=== PATIENT | male | born 1960 | race Caucasian/White ===

== ENCOUNTER → 2019-09-30 | Outpatient (CLI) | payer OTHER ==
--- NOTE | 2019-09-30 12:24 | XR ---
Left hand HISTORY: Pain and swelling 3 views the left hand There is subchondral sclerosis, joint space loss, hypertrophic change of the carpometacarpal joint of the first digit. Alignment and joint spaces, bone mineralization otherwise maintained. No fracture o r dislocation. Some mild spurring present at the metacarpophalangeal joint of the first digit. IMPRESSION: Osteoarthritis.
== END | disposition home or self-care (01) ==
LOC: RADXRMAIN 09:01
PROVIDERS: ATTEND Family Medicine
DX: M19.042 Primary osteoarthritis, left hand (principal)

== ENCOUNTER → 2021-03-17 | Outpatient (CLI) | payer OTHER ==
--- NOTE | 2021-03-17 11:29 | ECHOF ---
Referral Reason:R01.1 murmur MEASUREMENTS -------- HEIGHT: 182.9 cm WEIGHT: 90.7 kg BP: IVSd: 1.4 cm (0.6 - 1.1) LVIDd: 4.6 cm (3.9 - 5.3) LVPWd: 1.3 cm (0.6 - 1.1) EDV(Teich): 96 ml IVSs: 1.8 cm LVIDs: 2.8 cm LVPWs: 1.8 cm %IVS Thck: 25 % ESV(Teich): 29 ml EF(Teich): 70 % %FS: 39 % SV(Teich): 67 ml RVIDd: 4.0 cm (< 3.3) MURALI Planimetry: 1.3 cm AVAI Planimetry: 0.595 cm/m LALs A4C: 5.4 cm LAAs A4C: 20.8 cm LAESV A-L A4C: 67 ml LAESV MOD A4C: 59 ml LALs A2C: 5.6 cm LAAs A2C: 23.5 cm LAESV A-L A2C: 85 ml LAESV MOD A2C: 80 ml LAESV(A-L): 76 ml LAESV Index (A-L): 35.88 ml/m Ao Diam: 2.6 cm (2.0 - 3.7) AV Cusp: 1.6 cm (1.5 - 2.6) EPSS: 1.0 cm MV E [place]: 0.71 m/s MV DecT: 205 ms MV Dec [place]: 3.5 m/s MV A [place]: 0.62 m/s MV E/A Ratio: 1.15 MV PHT: 59 ms LVOT Vmax: 1.33 m/s LVOT maxP.07 mmHg AV Vmax: 1.96 m/s AV maxP.37 mmHg AV Vmax: 2.01 m/s AV Vmean: 1.33 m/s AV maxP.14 mmHg AV meanP.04 mmHg AV Env.Ti: 304 ms AV VTI: 40.5 cm TR Vmax: 2.89 m/s TR maxP.44 mmHg RAP: 5.00 mmHg RVSP: 38.44 mmHg MV EF SLOPE: 103.02 mm/s (70 - 150) MV EXCURSION: 22.20 mm (> 18.000) FINDINGS -------- Sinus rhythm. This was a technically adequate study. The left ventricular size is normal. There is moderate concentric left ventricular hypertrophy. O verall left ventricular systolic function is normal with, an EF between 55 - 60 %. The diastolic fi lling pattern is normal for the age of the patient {E/E'}. The right ventricle is moderately enlarged. LA is moderately dilated 34-39 ml/m2 The right atrial size is normal. Mobile interatrial septum. There is mild aortic valve sclerosis. There is no evidence of aortic regurgitation. There is mild aortic stenosis present. The maximum velocity across the aortic valve is 2.01m/s. Peak/mean grad ient across the Aortic Valve is 16.14mmHg / 8.04mmHg. 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 Moderate mitral regurgitation is present. Mild tricuspid regurgitation present. There is mild pulmonary hypertension. The right ventricular systolic pressure, as measured by Doppler, is 38.44mmHg. Trace/mild (physiologic) pulmonic regurgitation. The aortic root size is normal. IVC Not well visulized. There is no pericardial effusion. CONCLUSIONS -------- 1. The left ventricular size is normal. 2. There is moderate concentric left ventricular hypertrophy. 3. Overall left ventricular systolic function is normal with, an EF between 55 - 60 %. 4. The diastolic filling pattern is normal for the age of the patient {E/E'} 5. The right ventricle is moderately enlarged. 6. LA is moderately dilated 34-39 ml/m2 7. Mobile interatrial septum. 8. There is mild aortic valve sclerosis. 9. There is mild aortic stenosis present. 10. The maximum velocity across the aortic valve is 2.01m/s. 11. Peak/mean gradient across the Aortic Valve is 16.14mmHg / 8.04mmHg. 12. 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 13. Moderate mitral regurgitation is present. 14. Mild tricuspid regurgitation present. 15. There is mild pulmonary hypertension. 16. The right ventricular systolic pressure, as measured by Doppler, is 38.44mmHg. 17. Trace/mild (physiologic) pulmonic regurgitation. ASSOCIATE PROFESS[employer]: Laura Evans [facility]
== END | disposition home or self-care (01) ==
LOC: RADECHMAIN 08:33
PROVIDERS: ATTEND Family Medicine
DX: I08.3 Combined rheumatic disorders of mitral, aortic and tricuspid valves (principal); I27.20 Pulmonary hypertension, unspecified
CPT/HCPCS: 93306

== ENCOUNTER 2021-05-04 09:23 | Day surgery (SDC) | payer OTHER ==
[2021-05-02 08:29] VITALS: BMI 27.1
[2021-05-04] MEDS ORDERED: SODIUM CHLORIDE 0.9% 500 ML 500 ML IV ONE (09:42)
[2021-05-04] MEDS ORDERED: fentaNYL (PF) 50 MCG/ML 2 ML AMP ONE (10:14)
[2021-05-04] MEDS: BENZOCAINE SPRAY 1 CAN TOPICAL ONE ×4 (10:22→10:56)
[2021-05-04 10:30] VITALS: RESP 16
[2021-05-04] MEDS ORDERED: MIDAZOLAM 2 MG/2 ML VIAL IV ONE ×3 (10:38→10:58)
[2021-05-04] MEDS ORDERED: fentaNYL (PF) 50 MCG/ML 2 ML AMP IV ONE (10:56)
[2021-05-04] MEDS: MIDAZOLAM 2 MG/2 ML VIAL IV ONE ×3 (10:56→11:01)
--- NOTE | 2021-05-04 11:39 | P.PCN ---
Date of Procedure: 05/04/21 Operative Findings: TRANSESOPHAGEAL ECHOCARDIOGRAM HEEL SPLITTER: NESTOR RIVERS MD, RPVI INDICATION: This is a 60-year-old gentleman who underwent recently a transthoracic echocardiogram showed quadricep aortic valve with also dilated right ventricle and atrium and possible atrial septal defect SEDATION: Conscious sedation COMPLICATION: None LEVEL OF SEDATION Moderate with a sedation length of 12 minutes PROCEDURE DESCRIPTION: After obtaining an informed consent, the patient was brought to transesophageal echocardiogram room. Pulse oximetry and heart monitors were attached to the patient. The patient throat was sprayed using lidocaine. The patient was turned into left lateral position. After that a bite guard was placed. After an appropriate conscious sedation was initiated, the transesophageal echocardiogram was advanced through a bite guard into the mid esophagus. A 2-D echocardiogram images, color Doppler images, continuous wave images, pulse-wave images, of various cardiac structure were performed. After that the transesophageal echocardiogram probe was advanced into the stomach and fixed to obtain transgastric view was. The probe was brought into the mid esophagus. Inter-atrial septum was interrogated using 2D images, color Doppler images, and then contrast study. After that transesophageal echocardiogram was withdrawn out and upon withdrawing the descending thoracic aorta all the way up to the arch was evaluated. FINDING: The left ventricular dimension and systolic function appeared to be within normal limits. The right ventricle is dilated. The right atrium is dilated as well. The left atrial appendage appeared to be intact. The interatrial septum appeared to be extremely aneurysmal with evidence of [id number] and [id number] shunts identified. The septum appeared to be fenestrated. The aortic valve is trileaflet valve without stenosis or regurgitation. The mitral valve seems to be mildly thickened with mild MR only. There is mild tricuspid regurgitation seen. The pulmonary artery systolic pressure was not calculated. The aortic root appears to be mildly dilated. CONCLUSION: 1. Fenestrated interatrial septum with evidence of bidirectional shunt and evidence of right heart dilated dictation related to volume overload 2. Dilated right atrium and right ventricle 3. Normal left ventricular dimension and systolic function 4. Trileaflet aortic valve without stenosis or regurgitation 5. Normal mitral valve leaflets with mild MR 6. No evidence of pericardial effusion
[2021-05-04 11:53] VITALS: PULSE 62
[2021-05-04 12:14] VITALS: BP 126/83
== END 2021-05-04 12:15 | disposition home or self-care (01) ==
LOC: CATHCVL 09:23
PROVIDERS: ATTEND Internal Medicine Interventional Cardiology
DX: I51.7 Cardiomegaly (principal); I10 Essential (primary) hypertension; E78.5 Hyperlipidemia, unspecified; Z20.822 Contact with and (suspected) exposure to COVID-19; Z79.82 Long term (current) use of aspirin; Z79.899 Other long term (current) drug therapy
CPT/HCPCS: 93312; 93320; 93325; 87635; J2250; J3010

== ENCOUNTER → 2021-06-26 | Outpatient (CLI) | payer OTHER ==
[2021-06-26 18:27] LABS: HCT 42.6 % (39.6-50.0); HGB 13.9 g/dL (13.0-17.0); MCH 29.1 pg (27.0-32.0); MCHC 32.6 g/dL (32.0-37.0); MCV 89.1 fL (80.0-97.0); Mean Platelet Volume 9.7 fL (9.5-12.2); NRBC Per 100 WBC 0 /100 WBCS (0.0-0.0); Platelet Count 357 X 10*3/uL (140-440); RBC 4.78 X 10*6/uL (4.40-5.60); RDW 13.7 % (11.5-14.5); WBC 5.42 X 10*3/uL (4.50-10.00)
[2021-06-26 21:57] LABS: African American GFR (CKD) 107.6 (60.0-200.0); Anion Gap 12.2 mmol/L (10.00-18.00); Carbon Dioxide 21.5 mmol/L (20.0-27.5); Non-African American GFR(CKD) 92.8 (60.0-200.0); Potassium 4.6 mmol/L (3.5-5.5)
== END | disposition home or self-care (01) ==
LOC: LABPAT 10:09
PROVIDERS: ATTEND Internal Medicine Interventional Cardiology
DX: Z01.812 Encounter for preprocedural laboratory examination (principal); Q21.1 Atrial septal defect
CPT/HCPCS: 36415; 80051; 82565; 84520; 85027

== ENCOUNTER 2021-07-04 07:23 | Day surgery (SDC) | payer OTHER ==
[2021-07-03 10:24] VITALS: BMI 26.6
[~2021-07-04 07:23] MED LIST: ALPRAZolam 0.25 MG TAB PO PRN; ALPRAZolam 0.5 MG TAB PO PRN; ASPIRIN 325 MG TAB PO STA; ATORVASTATIN 80 MG TAB PO STA; HEPARIN SODIUM,PORCINE 10,000 UNIT in SODIUM CHLORIDE 0.9% 1,000 ML IRRIGATION PRN; HEPARIN SODIUM,PORCINE 2,500 UNIT in SODIUM CHLORIDE 0.9% 250 ML IRRIGATION PRN; NITROGLYCERIN SL TABS 0.4 MG TAB SUBLINGUAL PRN
[2021-07-04] MEDS: SODIUM CHLORIDE 0.9% 1,000 ML in EMPTY BAG 1 BAG IV SCH ×2 (07:45→16:05)
[2021-07-04] MEDS ORDERED: MIDAZOLAM 2 MG/2 ML VIAL IV ONE (09:19)
[2021-07-04] MEDS ORDERED: LIDOCAINE 1% INJ 10MG/ML (30 ML VIAL-PF) SQ ONE (09:21)
[2021-07-04] MEDS ORDERED: HEPARIN SODIUM 1,000 UN/ML (10ML VL) IV ONE (09:25)
[2021-07-04] MEDS ORDERED: IOPAMIDOL-370 50ML BTL INJ ONE (09:39)
[2021-07-04] MEDS ORDERED: CLOPIDOGREL 75 MG TAB PO ONE (09:52)
[2021-07-04] MEDS ORDERED: SODIUM CHLORIDE 0.9% 1,000 ML IV SCH (10:00)
--- NOTE | 2021-07-04 10:02 | P.PCN ---
Date of Procedure: 07/04/21 Operative Findings: PERCUTANEOUS CLOSURE OF FENESTRATED INTERATRIAL SEPTUM PERFORMING PHYSICIAN: Harpal Rodriguez MD, VI PROCEDURE PERFORMED: 1. Successful percutaneous closure of fenestrated atrial septal defect (ASD) using 30 mm Amplatzer Occluder with an excellent results and without any residual shunt. 2. Intracardiac echocardiogram imaging. 3. Right atrial angiogram. INDICATION: This is a 61-year-old gentleman was found to have right side dictation with RV and RA dietitian on echocardiogram. Subsequently transesophageal ech ocardiogram was performed and revealed evidence of fenestrated interatrial septum with bidirectional shunt. APPROACH: Right common femoral vein 2 COMPLICATION: None. LEVEL OF SEDATION: Moderate with sedation length of 20 minutes. PROCEDURE DESCRIPTION: After obtaining informed consent, the patient was brought to the cardiac [facility]aker laboratory. The right common femoral vein was cannulated x2 using micropuncture technique under ultrasound guidance, the micropuncture wire passed easily, then I placed two 8-Welsh sheath in the right groin. Subsequently I cannulated the left common femoral vein with the same technique and I placed an 8-Welsh sheath there as well. At that point, anticoagulation was initiated using heparin and the patient was given a bolus of 10,000 units of heparin IV with continuous ACT monitoring throughout the procedure. After that, the intracardiac echocardiogram probe was advanced through one of the venous sheath all the way to the right atrium where we did interrogate the interatrial septum and identified the patent foramen ovale which was measured about 35 mm. Subsequently, I did cross the defect using 0.035 J-wire with the backup support of multipurpose catheter. The wire was advanced all the way to the left upper pulmonary vein and subsequently the catheter was advanced over the wire to the left upper pulmonary vein. The 0.035 J-wire was pulled out and then I advanced a teddy wire. Subsequently, the multipurpose catheter was withdrawn out and the wire was left in the left upper pulmonary vein. After that, I did prep the Amplatzer PFO occluder under saline. The device was loaded into the forklift wheel loader, which was attached to the sheath. Subsequently, I did exchange my 8-Welsh sheath into the Shuttle sheath over a 0.035 teddy wire. The sheath was advanced all the way under fluoroscopy guidance to the left atrium. Subsequently, the dilator of the sheath was withdrawn out along with the wire. After that, I did load the Amplatzer occluder under continuous saline flush to the sheath. The device was advanced all the way through the sheath were I did where I did deploy initially the left atrial occluder and then I pulled back the sheath and the left atrial occluder all the way to the interatrial septum and then I deployed the right atrial occluder after that. Before I released the device, I did interrogate the septum using ice images on multiple views. After I realized that the device was stable enough and in good position the device was released. Interrogation using ice was also performed after the device was released. By the end I did right atrial angiogram. The procedure was completed without any complication. POSTPROCEDURE MANAGEMENT: 1. Dual anti-platelet therapy. 2. An echo in 24 hours, in 1 week, in 4 weeks, as well as in 6 months.
[2021-07-04] MEDS ORDERED: CHOLECALCIFEROL 25 MCG (1000 IU) TABLET PO SCH (13:00)
[2021-07-04] MEDS ORDERED: atenoloL 50 MG TAB PO SCH (13:00)
[2021-07-04] MEDS ORDERED: CHLORTHALIDONE 25 MG TAB PO SCH (13:00)
[2021-07-04] MEDS ORDERED: LOSARTAN 50 MG TAB PO SCH (13:00)
[2021-07-04] MEDS ORDERED: ATORVASTATIN 10 MG TAB PO SCH (13:00)
[2021-07-04] MEDS ORDERED: amLODIPine 5 MG TAB PO SCH (13:00)
[2021-07-05 01:52] VITALS: RESP 16
[2021-07-05] MEDS: SODIUM CHLORIDE 0.9% 1,000 ML in EMPTY BAG 1 BAG IV SCH (02:43)
[2021-07-05 07:15] VITALS: BP 125/80; PULSE 55; TEMP 97.6
--- NOTE | 2021-07-05 08:18 | XR ---
EXAMINATION TYPE: XR chest 2V DATE OF EXAM: 07/05/2021 COMPARISON: NONE HISTORY: ASD/PFO placement TECHNIQUE: Frontal and lateral views of the chest are obtained. FINDINGS: Surgical patch from ASD repair noted posterior right aspect of cardiac silhouette. There i s no suspicious focal air space opacity, pleural effusion, or pneumothorax seen bilaterally. The car diac silhouette size is within normal limits. Multilevel spurring in the thoracic spine is noted. IMPRESSION: As above.
[2021-07-05] MEDS ORDERED: ASPIRIN 325 MG TAB PO SCH (09:00)
[2021-07-05] MEDS ORDERED: CLOPIDOGREL 75 MG TAB PO SCH (09:00)
--- NOTE | 2021-07-05 10:30 | P.DS ---
Providers Attending physician: Harpal Rodriguez Primary care physician: [facility] Course: The patient is a pleasant 61-year-old gentleman who underwent yesterday successful closure of atrial septal defect with an excellent angiographic results and without any complication from right groin approach. He was seen this morning. He is asymptomatic. He is hemodynamically stable. The physical examination is unremarkable. The right groin is soft and nontender and without any bruises. He is going to be discharged on dual antiplatelet therapy and I'll follow-up with the patient in a week. Plan - Discharge Summary Discharge Rx Participant: No New Discharge Prescriptions: New Clopidogrel Bisulfate [Plavix] 75 mg PO DAILY #90 tab Continue Cholecalciferol [Vitamin D3 (25 Mcg = 1000 Iu)] 25 mcg PO 1200 Atenolol/Chlorthalidone [Atenolol/Chlorthalidone 100-25] 1 each PO 1200 Atorvastatin [Lipitor] 10 mg PO 1200 amLODIPine [Norvasc] 5 mg PO 1200 Olmesartan Medoxomil [Benicar] 40 mg PO 1200 Aspirin [Adult Low Dose Aspirin EC] 81 mg PO 1200 Discharge Medication List Aspirin [Adult Low Dose Aspirin EC] 81 mg PO 1200 05/02/21 [History] Atenolol/Chlorthalidone [Atenolol/Chlorthalidone 100-25] 1 each PO 1200 05/02/21 [History] Atorvastatin [Lipitor] 10 mg PO 1200 05/02/21 [History] Cholecalciferol [Vitamin D3 (25 Mcg = 1000 Iu)] 25 mcg PO 1200 05/02/21 [History] Olmesartan Medoxomil [Benicar] 40 mg PO 1200 05/02/21 [History] amLODIPine [Norvasc] 5 mg PO 1200 05/02/21 [History] Clopidogrel Bisulfate [Plavix] 75 mg PO DAILY #90 tab 07/05/21 [Rx] Follow up Appointment(s)/Referral(s): Harpal Rodriguez MD [STAFF PHYSICIAN] - 1 Week
[2021-07-05] MEDS ORDERED: ASPIRIN 81 MG PO SCH (12:00)
--- NOTE | 2021-07-05 13:48 | CA ---
Transthoracic Echo Report Name: Tiago Valle Age: 61 Gender: M : 1960 Exam Date: 07/05/2021 11:27 Exam Location: [place] [facility] Ht (in): 72 Wt (lb): 203 Ordering Physician: Harpal Rodriguez MD ([id number]) Attending/Referring Phys: Refrigeration Manager Laura Evans RDCS Procedure CPT: Indications: Post ASD/PFO Insertion Cardiac Hx: Technical Quality: Fair Contrast 1: Total Dose (mL): Contrast 2: Total Dose (mL): MEASUREMENTS (Male / Female) Normal Values 2D ECHO LV Diastolic Diameter PLAX 3.6 cm 4.2 - 5.9 / 3.9 - 5.3 cm LV Systolic Diameter PLAX 2.2 cm IVS Diastolic Thickness 1.2 cm 0.6 - 1.0 / 0.6 - 0.9 cm LVPW Diastolic Thickness 1.5 cm 0.6 - 1.0 / 0.6 - 0.9 cm LV Relative Wall Thickness 0.7 RV Internal Dim ED PLAX 3.8 cm LA Volume 56.7 cm??? 18 - 58 / 22 - 52 cm??? M-MODE Aortic Root Diameter MM 3.3 cm LA Systolic Diameter MM 3.5 cm LA Ao Ratio MM 1.1 AV Cusp Separation MM 1.6 cm DOPPLER AV Peak Velocity 171.4 cm/s AV Peak Gradient 11.8 mmHg LVOT Peak Velocity 101.3 cm/s LVOT Peak Gradient 4.1 mmHg MV Area PHT 3.5 cm??? Mitral E Point Velocity 62.3 cm/s Mitral A Point Velocity 76.7 cm/s Mitral E to A Ratio 0.8 MV Deceleration Time 214.9 ms TR Peak Velocity 261.4 cm/s TR Peak Gradient 27.3 mmHg Right Ventricular Systolic Press 32.3 mmHg FINDINGS Left Ventricle Normal left ventricular systolic function with no obvious regional wall motion abnormalities. Normal left ventricular diastolic filling pattern. Left ventricular cavity size normal. Mildly increased left ventricular wall thickness. Left ventricular ejection fraction is estimated at 55-60 %. Right Ventricle Mild right ventricular dilatation. Right ventricular systolic pressure within normal limits. Right Atrium Normal right atrial size. Left Atrium Left atrial size at the upper limits of normal. Interatrial closure devise noted. No shunt noted. Mitral Valve Structurally normal mitral valve. Mild mitral regurgitation. Aortic Valve Trileaflet aortic valve. No aortic valve stenosis or regurgitation. Tricuspid Valve Mild tricuspid regurgitation. Pulmonic Valve Structurally normal pulmonic valve. Trace pulmonic regurgitation. Pericardium No pericardial effusion. Aorta Normal size aortic root and proximal ascending aorta. CONCLUSIONS Normal left ventricular dimension and systolic function Stable atrial septal device No evidence of pericardial effusion Previewed by: Dr. Harpal Rodriguez MD (Electronically Signed) Final Date: 05 Jul 2021 13:48
== END 2021-07-05 12:10 | disposition home or self-care (01) ==
LOC: CATHCVL 07:23 → 6NMEDSUR 11:32 → CATHCVL 07-05 12:10
PROVIDERS: ATTEND Internal Medicine Interventional Cardiology
DX: Q21.1 Atrial septal defect (principal); I10 Essential (primary) hypertension; E78.5 Hyperlipidemia, unspecified; I34.0 Nonrheumatic mitral (valve) insufficiency; Z20.822 Contact with and (suspected) exposure to COVID-19; Z79.82 Long term (current) use of aspirin; Z79.899 Other long term (current) drug therapy
CPT/HCPCS: 93306; 93580; 93662; 86900; 86901; 86850; 87635; 71046; C1769 ×3; C1760; C1817; C1759; J2250; J0690; J2001; J1644; Q9967

== ENCOUNTER 2024-06-09 10:50 | Day surgery (SDC) | payer OTHER ==
[2024-06-03 12:00] VITALS: BMI 27.6
[~2024-06-09 10:50] MED LIST changes: -ALPRAZolam 0.25 MG TAB PO PRN; -ALPRAZolam 0.5 MG TAB PO PRN; -ASPIRIN 325 MG TAB PO STA; -ATORVASTATIN 80 MG TAB PO STA; -HEPARIN SODIUM,PORCINE 10,000 UNIT in SODIUM CHLORIDE 0.9% 1,000 ML IRRIGATION PRN; -HEPARIN SODIUM,PORCINE 2,500 UNIT in SODIUM CHLORIDE 0.9% 250 ML IRRIGATION PRN; +LIDOCAINE 1% (10MG/ML) FOR IV START INTRADERMA PRN; -NITROGLYCERIN SL TABS 0.4 MG TAB SUBLINGUAL PRN; +ONDANSETRON 4 MG/2 ML VIAL IVP PRN
[2024-06-09] MEDS: IV FLUID CONTINUATION 1,000 ML IV ONE (11:12)
[2024-06-09 11:23] VITALS: TEMP 97.2
[2024-06-09] MEDS: LACTATED RINGERS 1,000 ML IV SCH (11:29)
[2024-06-09] MEDS ORDERED: LIDOCAINE 1% INJ 10MG/ML (20 ML MDV) ONE (12:11)
[2024-06-09] MEDS ORDERED: PROPOFOL 10 MG/ML 20 ML VIAL IV ONE (12:11)
--- NOTE | 2024-06-09 12:28 | P.PCN ---
Date of Procedure: 06/09/24 Procedure(s) Performed: BRIEF HISTORY: Patient is a 63-year-old pleasant white male scheduled for an elective colonoscopy as a part of screening for colon cancer. PROCEDURE PERFORMED: Colonoscopy. PREOPERATIVE DIAGNOSIS: Screening for colon cancer. IV sedation per Anesthesia. PROCEDURE: After informed consent was obtained, the patient, was brought into the endoscopy unit. IV sedation was administered by Anesthesia under continuous monitoring. Digital rectal examination was normal. Initially the Olympus CF-160 flexible video colonoscope was then inserted in the rectum, gradually advanced into the cecum without any difficulty. Careful examination was performed as the scope was gradually being withdrawn. Ileocecal valve and the appendiceal orifice were visualized and appeared normal. Prep was excellent. Mucosa of the cecum, ascending colon, transverse colon, descending colon, sigmoid colon, and rectum appeared normal. Moderate sigmoid diverticulosis retroflexion was performed in the rectum and no lesions were seen. The patient tolerated the procedure well. IMPRESSION: Normal-appearing colon from rectum to cecum with no evidence of colorectal neoplasia. Moderate sigmoid diverticulosis. RECOMMENDATIONS: Findings of this examination were discussed with the patient as well as his family. He was advised to have repeat screening colonoscopy in 10 years..
[2024-06-09 13:23] VITALS: BP 121/71; PULSE 72; RESP 18
== END 2024-06-09 13:49 | disposition home or self-care (01) ==
LOC: ORWHC2ENDO 10:50
PROVIDERS: ATTEND Internal Medicine Gastroenterology
DX: Z12.11 Encounter for screening for malignant neoplasm of colon (principal); K57.30 Diverticulosis of large intestine without perforation or abscess without bleeding; I10 Essential (primary) hypertension; E78.5 Hyperlipidemia, unspecified; G47.33 Obstructive sleep apnea (adult) (pediatric); Z91.199 Patient's noncompliance with other medical treatment and regimen due to unspecified reason; Z79.82 Long term (current) use of aspirin; Z79.899 Other long term (current) drug therapy
CPT/HCPCS: 45378; J2003; J2704